=== PATIENT | female | born 1950 | race African-American/Black ===

== ENCOUNTER 2024-11-02 10:58 | Inpatient (IN) ==
[2024-11-02] MEDS ORDERED: MOTRIN TAB 600 MG PO PRN (15:13)
[2024-11-02 15:48] LABS: BASOPHILS # (AUTO) 0.1 X10^3/uL (0.0-0.1); BASOPHILS % (AUTO) 1.3 % (0.2-1.0); EOSINOPHILS # (AUTO) 0.4 x10^3/uL (0.0-0.2); EOSINOPHILS % (AUTO) 8.3 % (0.9-2.9); HEMATOCRIT 36.9 % (36.0-47.0); HEMOGLOBIN 11.7 g/dL (12.0-16.0); LYMPHOCYTES # (AUTO) 1.3 X10^3/uL (1.3-2.9); LYMPHOCYTES % (AUTO) 27.1 % (21.0-51.0); MEAN CORPUSCULAR HEMOGLOBIN 28.4 pg (27.0-34.0); MEAN CORPUSCULAR HGB CONC 31.6 g/dL (33.0-35.0); MEAN CORPUSCULAR VOLUME 89.8 fL (80.0-100.0); MEAN PLATELET VOLUME 8.2 fL (7.4-11.0); MONOCYTES # (AUTO) 0.5 x10^3/uL (0.3-0.8); MONOCYTES % (AUTO) 10.1 % (0.0-13.0); NEUTROPHILS # (AUTO) 2.5 x10^3/uL (2.2-4.8); NEUTROPHILS % (AUTO) 53.2 % (42.0-75.0); PLATELET COUNT 160 X10^3/uL (150.0-450.0); RED BLOOD COUNT 4.11 X10^6/uL (3.5-5.4); RED CELL DISTRIBUTION WIDTH 17.8 % (11.6-16.5); WHITE BLOOD COUNT 4.6 X10^3/uL (3.6-10.0)
[2024-11-02 15:50] VITALS: BMI 22.4
[2024-11-02 16:02] LABS: ALBUMIN 3.3 g/dL (3.4-5.0); CALCIUM 9.2 mg/dL (8.5-10.1); CARBON DIOXIDE 24.5 mmol/L (21-32); COR CA(FOR HYPOALB) 9.8 mg/dL (8.5-10.1); CREATININE 5.14 mg/dL (0.55-1.02); POTASSIUM 4.1 mmol/L (3.5-5.1); TOTAL PROTEIN 6.7 g/dL (6.4-8.2)
[2024-11-02] MEDS: NS 1,000 ML IV 1,000 ML IV SCH (16:25)
[2024-11-02] MEDS: NS 1,000 ML IV 1,000 ML ONE (16:27)
--- NOTE | 2024-11-02 16:32 | EKG ---
Test Reason : pre op for surgery Blood Pressure : */* mmHG Vent. Rate : 67 BPM Atrial Rate : 67 BPM P-R Int : 182 ms QRS Dur : 84 ms QT Int : 436 ms P-R-T Axes : 98 49 33 degrees QTc Int : 460 ms Normal sinus rhythm Normal ECG When compared with ECG of 14-JUL-2024 10:16, premature atrial complexes are no longer present Nonspecific T wave abnormality now evident in Lateral leads Confirmed by Conrado Zimmerman MD ([id number]) on 11/03/2024 7:33:32 AM Referred By: Confirmed By: Conrado Zimmerman MD
[2024-11-02] MEDS: PERCOCET TAB 5/325 MG PO PRN (17:49)
[2024-11-02] MEDS: LOVENOX INJ 80 MG SYR SC SCH (17:51)
[2024-11-02] MEDS: NEURONTIN CAP 300 MG PO SCH (21:10)
[2024-11-02] MEDS: NORMODYNE TAB 200 MG PO SCH (21:12)
[2024-11-02] MEDS: APRESOLINE TAB 25 MG PO SCH (21:14)
[2024-11-02] MEDS: CATAPRES TAB 0.3 MG PO SCH (21:16)
[2024-11-02] MEDS: PROCARDIA XL 24-HR PO SCH (21:25)
[2024-11-02] MEDS: LOVENOX INJ 60 MG SYR SC SCH (21:26)
--- NOTE | 2024-11-02 22:09 | CT ---
EXAM: CTA AORTA, AND BILATERAL LOWER EXTREMITIES WITH INTRAVENOUS CONTRAST HISTORY: Poor circulation. TECHNIQUE: Spiral axial CT images are obtained through the distal abdomen, pelvis and bilateral lower extremities with the administration of intravenous contrast. Three-dimensional coronal, sagittal, an d oblique images are reformatted. COMPARISON: CTA abdomen, pelvis, and bilateral lower extremities dated May 20, 2024. FINDINGS: LUNG BASES: There is severe coronary atherosclerosis. The patient is status post median sternotomy, presumably for CABG. There is cardiomegaly with four-chamber enlargement. No pericardial effusion i s seen. There is mild diffuse lung parenchymal emphysema. There is subpleural parenchymal fibrosis in the posterior lateral inferior right lower lobe. There is approximately 3.5 mm noncalcified subpl eural nodule in the posterior left lower lobe; DDx includes noncalcified granuloma and neoplastic nod ule. Axial image 36. BILIARY SYSTEM: There is gallbladder dilatation and thickened appearance of the gallbladder wall cons istent with cholecystitis in the appropriate clinical setting. Axial image 60-79, series 7. Conside r follow-up evaluation with HIDA scan to rule out cystic duct obstruction and acute cholecystitis as clinically warranted. GASTROINTESTINAL TRACT: There is circumferential thickening of the distal esophagus and gastroesophag eal junction in keeping with gastroesophagitis in the appropriate clinical setting; neoplastic diseas e not excluded. Axial image 22-55, series 7. Abundant fecal material is seen within the large bowel and rectum consistent with constipation. Diffuse colonic diverticulosis, especially severe in the s igmoid region, without CT evidence for acute diverticulitis. No evidence for bowel herniation, bowel obstruction, appendicitis or colitis. REPRODUCTIVE SYSTEM: There is an approximately 3.7 cm x 2.9 cm x 3.6 cm soft tissue mass in the anter ior body of the uterus consistent with a subserosal fibroid. Axial image 138; sagittal image 59. Th e adnexa appear grossly unremarkable for a CT scan. Consider follow-up dedicated imaging as clinical ly warranted. CT ABDOMEN AND PELVIS: The liver, spleen, pancreas, kidneys, adrenal glands, and IVC are within rosa l limits. There is no free fluid, free air, herniation, mass lesion, or lymphadenopathy seen. No bony fracture deformities are seen. There is interval appearance of an approximately 6.2 cm CC by 4.4 cm AP by 4.1 cm transverse rounded hyperdense fluid collection within the proximal left sartorius muscl e in keeping with an intracystic hematoma in the appropriate clinical setting; DDx includes superinfe cted fluid/abscess and necrotic soft tissue mass. Axial image 169-192, series 7; sagittal image 32-4 6, series 10. CTA ABDOMEN AND PELVIS: There is severe aortoiliac atherosclerotic disease, without aneurysm formatio n or dissection. No aortic aneurysm, dissection, or occlusion is seen. There is atherosclerotic calcified and noncalcified mural plaque seen in the celiac axis and proximal segment (approximately 2 cm long), with estimated moderate (estimated 50 to 69%), potentially hemody namically significant, luminal stenoses. Sagittal image 43, series 10; axial image 58-64, series 7. There is severe calcified atherosclerotic plaque seen in the celiac axis and proximal and middle SMA segments, with estimated severe (estimated greater than 70%), presuming hemodynamically significant, SMA origin luminal stenosis. Sagittal image 43-48, series 10; axial image 64-68, series 7. There is severe atherosclerotic calcified mural plaque seen in the renal artery origins (with a left renal artery stent in situ), with estimated severe (estimated greater than 70%), presumed nonhemodyna mically significant, luminal stenoses. Axial image 68-74, series 7; coronal image 29-36, series 9. There is severe atherosclerotic calcified mural plaque seen at the ROSA origin with estimated severe ( greater than 70%), potentially hemodynamically significant, luminal stenosis. Axial image 88-93. Bilateral kissing common iliac artery while stents are noted in situ, with evidence for mild illumina ting narrowing (estimated 50%) of the proximal and distal lumen of the left Wallstent. Axial image 1 00-116. There is estimated moderate (50 to 69%) right external iliac artery origin stenosis. Multif ocal segmental mild luminal stenoses (50% or less) are seen throughout the bilateral external iliac a rteries. CTA LOWER EXTREMITIES: RIGHT: There is evidence for severe occlusive stenosis of the right common femoral artery and origin of the right profundofemoral artery. Axial image 150-164, series 7. There are occluded proximal and middle right SFA wallstents. There is severe atherosclerotic calcified plaque in the popliteal kenyatta ry with complete popliteal artery occlusion. There is occlusion of the right TRANSITION OF CARE SPECIALIST at its origin. The re is reconstitution of arterial blood flow within right peroneal artery which represents the main bl ood flow to the distal leg/ankle. The right RICARDO and TRANSITION OF CARE SPECIALIST are severely diseased throughout with occlus haven thrombosis in the proximal RICARDO and severe attenuation of blood flow in the middle and distal TRANSITION OF CARE SPECIALIST. LEFT: The left SCREW DOWN demonstrated severe calcified and noncalcified atherosclerotic plaque with estimat ed mild (less than 50%) luminal stenosis. A patent proximal left SFA Wallstent is noted. A patent d istal left SFA Wallstent is noted, with mild (estimated 50% or less) segmental luminal stenoses throu ghout. The left popliteal artery and proximal trifurcation runoff vessels are diseased but patent to the ankle and feet. There is severe distal left lower extremity subcutaneous soft tissue edema and swelling at and below the knee; DDx includes venous stasis changes and cellulitis in the appropriate clinical setting. IMPRESSION: 1. Severe aortoiliac atherosclerotic disease, without aneurysm formation or dissection. No aortic a neurysm, dissection, or occlusion is seen. 2. Atherosclerotic calcified and noncalcified mural plaque seen in the celiac axis and proximal segm ent (approximately 2 cm long), with estimated moderate (estimated 50 to 69%), potentially hemodynamic ally significant, luminal stenoses. Sagittal image 43, series 10; axial image 58-64, series 7. 3. Severe calcified atherosclerotic plaque seen in the celiac axis and proximal and middle SMA segme nts, with estimated severe (estimated greater than 70%), presuming hemodynamically significant, SMA o rigin luminal stenosis. Sagittal image 43-48, series 10; axial image 64-68, series 7. 4. Severe atherosclerotic calcified mural plaque seen in the renal artery origins (with a left renal artery stent in situ), with estimated severe (estimated greater than 70%), presumed nonhemodynamical ly significant, luminal stenoses. Axial image 68-74, series 7; coronal image 29-36, series 9. 5. Severe atherosclerotic calcified mural plaque seen at the ROSA origin with estimated severe (great er than 70%), potentially hemodynamically significant, luminal stenosis. Axial image 88-93. 6. Bilateral kissing common iliac artery while stents are noted in situ, with evidence for mild illu minating narrowing (estimated 50%) of the proximal and distal lumen of the left Wallstent. Axial rosa ge 100-116. 7. Estimated moderate (50 to 69%) right external iliac artery origin stenosis. 8. Multifocal segmental mild luminal stenoses (50% or less) are seen throughout the bilateral caustic pump operator al iliac arteries. 9. Occlusive stenosis of the right SCREW DOWN and origin of the right profundofemoral artery. Axial image 150-164, series 7. 10. Occluded proximal and middle right SFA wallstents. 11. Severe atherosclerotic calcified plaque in the popliteal artery with complete popliteal artery o cclusion. 12. Occlusion of the right TRANSITION OF CARE SPECIALIST at its origin, with reconstitution of arterial blood flow within righ t peroneal artery which represents the main blood flow to the distal leg/ankle. 13. The right RICARDO and TRANSITION OF CARE SPECIALIST are severely diseased throughout with occlusive thrombosis in the proximal RICARDO and severe attenuation of blood flow in the middle and distal TRANSITION OF CARE SPECIALIST. 14. Left SCREW DOWN demonstrated severe calcified and noncalcified atherosclerotic plaque with estimated mi ld (less than 50%) luminal stenosis. 15. Patent proximal and distal left SFA Wallstent, with mild (estimated 50% or less) segmental lumin al stenoses throughout. 16. Left popliteal artery and proximal trifurcation runoff vessels are diseased but patent to the an kle and feet. 17. Interval appearance of an approximately 6.2 cm CC by 4.4 cm AP by 4.1 cm transverse rounded hype rdense fluid collection within the proximal left sartorius muscle in keeping with an intracystic alma catherine in the appropriate clinical setting; DDx includes superinfected fluid/abscess and necrotic soft tissue mass. Axial image 169-192, series 7; sagittal image 32-46, series 10. 18. Severe distal left lower extremity subcutaneous soft tissue edema and swelling at and below the knee; DDx includes venous stasis changes and cellulitis in the appropriate clinical setting. 19. Gallbladder dilatation and thickened appearance of the gallbladder wall consistent with cholecys titis in the appropriate clinical setting. Axial image 60-79, series 7. Consider follow-up evaluati on with HIDA scan to rule out cystic duct obstruction and acute cholecystitis as clinically warranted . 20. Circumferential thickening of the distal esophagus and gastroesophageal junction in keeping with gastroesophagitis in the appropriate clinical setting; neoplastic disease not excluded. Axial image 22-55, series 7. 21. Abundant fecal material is seen within the large bowel and rectum consistent with constipation. 22. Diffuse colonic diverticulosis, especially severe in the sigmoid region, without CT evidence for acute diverticulitis. 23. No evidence for bowel herniation, bowel obstruction, appendicitis or colitis. 24. Approximately 3.7 cm x 2.9 cm x 3.6 cm soft tissue mass in the anterior body of the uterus consi stent with a subserosal fibroid. Axial image 138; sagittal image 59. 25. Severe coronary atherosclerosis; status post median sternotomy, presumably for CABG; cardiomegal y with four-chamber enlargement. 26. Approximately 3.5 mm noncalcified subpleural nodule in the posterior left lower lobe; DDx includ es noncalcified granuloma and neoplastic nodule. Axial image 36. For low risk patient, recommend fo llow-up CT in 12 months, and if stable no further follow-up. For high-risk patient, recommend follow- up CT in no more than 6-12 months, and if stable, consider follow-up at 18-24 months. 27. Gallbladder dilatation and thickened appearance of the gallbladder wall consistent with cholecys titis in the appropriate clinical setting. Axial image 60-79, series 7. Consider follow-up evaluati on with HIDA scan to rule out cystic duct obstruction and acute cholecystitis as clinically warranted . THIS IS AN ELECTRONICALLY VERIFIED FINAL REPORT 11/02/2024 10:06 PM - Electronically signed by Marisol Andrade MD
--- NOTE | 2024-11-02 23:59 | NOTE.SOAP ---
Soap Note Note for Day of Date of Exam: 11/02/24 Subjective Data Subjective Data: This patient has had extensive bilateral arterial invention of the legs. She presented to the office today with acute onset 3 days prior of right leg pain. She has history of end-stage renal failure and was dialyzed last Saturday. Next dialysis is planned for tomorrow. She was admitted for pain control and evaluation. CT angiogram shows stenosis and occlusion of the right common femoral artery and superficial femoral artery stents and distal vessels as well. Objective Data Temperature: 97.9 F Pulse Rate: 72 Respiratory Rate: 16 Blood Pressure: 144/63 O2 Sat by Pulse Oximetry: 100 Objective Data: No Doppler signals or palpable pulses of the right ankle. CT angiogram as above Assessment Assessment: Acute ischemia secondary to thrombosis of arteries of the right leg involving primarily the common femoral artery and superficial femoral artery stents. Plan Plan: Therapeutic Lovenox. Plan to take her to the operating room for on table arteriogram and arterial intervention to be determined at that time.
[2024-11-03 06:20] LABS: BASOPHILS % (AUTO) 0.8 % (0.2-1.0); EOSINOPHILS # (AUTO) 0.4 x10^3/uL (0.0-0.2); EOSINOPHILS % (AUTO) 7.9 % (0.9-2.9); HEMATOCRIT 36.9 % (36.0-47.0); HEMOGLOBIN 11.8 g/dL (12.0-16.0); LYMPHOCYTES # (AUTO) 1.5 X10^3/uL (1.3-2.9); LYMPHOCYTES % (AUTO) 29.4 % (21.0-51.0); MEAN CORPUSCULAR HEMOGLOBIN 28.6 pg (27.0-34.0); MEAN CORPUSCULAR HGB CONC 32.1 g/dL (33.0-35.0); MEAN CORPUSCULAR VOLUME 89.2 fL (80.0-100.0); MEAN PLATELET VOLUME 8.9 fL (7.4-11.0); MONOCYTES # (AUTO) 0.5 x10^3/uL (0.3-0.8); MONOCYTES % (AUTO) 10.2 % (0.0-13.0); NEUTROPHILS # (AUTO) 2.7 x10^3/uL (2.2-4.8); NEUTROPHILS % (AUTO) 51.7 % (42.0-75.0); PLATELET COUNT 175 X10^3/uL (150.0-450.0); RED BLOOD COUNT 4.14 X10^6/uL (3.5-5.4); RED CELL DISTRIBUTION WIDTH 18.4 % (11.6-16.5); WHITE BLOOD COUNT 5.2 X10^3/uL (3.6-10.0)
[2024-11-03] MEDS: OMNIPAQUE 350 mg/mL 100 mL BTL 100 ML ONE (07:04)
[2024-11-03] MEDS: OMNIPAQUE 350 mg/mL 50 mL BTL 50 ML ONE (07:05)
[2024-11-03] MEDS: NS 500 ML IV 500 ML IV ONE (07:05)
[2024-11-03 07:10] LABS: ALANINE AMINOTRANSFERASE 14 Units/L (12-78); ALKALINE PHOSPHATASE 116 Units/L (46-116); ASPARTATE AMINO TRANSFERASE 14 Units/L (15-37); BLOOD UREA NITROGEN 51 mg/dL (7-18); CALCIUM 8.3 mg/dL (8.5-10.1); CARBON DIOXIDE 23.4 mmol/L (21-32); CHLORIDE 106 mmol/L (98-107); CREATININE 5.35 mg/dL (0.55-1.02); GLUCOSE 86 mg/dL (65-99); POTASSIUM 4.6 mmol/L (3.5-5.1); SODIUM 141 mmol/L (136-145); TOTAL PROTEIN 6.4 g/dL (6.4-8.2); eGFR NON BLACK RACES 8 (>60)
[2024-11-03 07:44] LABS: ALBUMIN 3.2 g/dL (3.4-5.0); COR CA(FOR HYPOALB) 8.9 mg/dL (8.5-10.1)
--- NOTE | 2024-11-03 08:22 | RAD ---
EXAM: CHEST, 1 VIEW HISTORY: pre op vascular surgery ; COMPARISON: 07/14/2024 FINDINGS: The cardiomediastinal silhouette is stable. Right-sided tunnel catheter unchanged. Similar post thomas rnotomy changes. Scattered bilateral opacities. No pneumothorax or effusion. No acute osseous abnormality. IMPRESSION: Scattered bilateral opacities which may be due to congestion/edema. Continued follow-up recommended. THIS IS AN ELECTRONICALLY VERIFIED FINAL REPORT 11/03/2024 8:19 AM - Electronically signed by Jeffy Ramsey MD
[2024-11-03] MEDS: ASPIRIN EC 81 MG PO SCH (09:20)
[2024-11-03] MEDS: LIPITOR TAB 40 MG PO SCH (09:21)
[2024-11-03] MEDS: NS 100 ML IV 100 ML ONE (12:42)
[2024-11-03] MEDS: LR 1,000 ML IV 1,000 ML IV ONE (12:42)
[2024-11-03] MEDS: ANCEF VIAL 1 GRAM ONE (12:42)
[2024-11-03] MEDS: LR 1,000 ML IV 250 ML IV PRN (12:58)
[2024-11-03] MEDS: REGLAN INJ 10 MG VIAL IVP PRN (12:59)
[2024-11-03] MEDS: VERSED IVP PRN (12:59)
[2024-11-03] MEDS: PEPCID 20 MG VIAL IVP PRN (12:59)
[2024-11-03] MEDS ORDERED: XYLOCAINE 2 % (PLAIN) PRN (13:02)
[2024-11-03] MEDS: KETAMINE HCL IV PRN (13:03)
[2024-11-03] MEDS: ANCEF VIAL 1 GRAM IV PRN (13:03)
[2024-11-03] MEDS: DIPRIVAN VIAL 250 ML IVP PRN (13:03)
[2024-11-03] MEDS: PRECEDEX INJ VIAL IVP PRN (13:03)
[2024-11-03] MEDS: MARCAINE 0.5% ONE (13:12)
[2024-11-03] MEDS: VISIPAQUE 50 ML ONE (13:12)
[2024-11-03] MEDS: HEPARIN 1,000 UNIT/500 ML-NS 3,000 UNIT/1,500 ML IV.SOLN ONE (13:12)
[2024-11-03] MEDS: VISIPAQUE 100 ML ONE (13:12)
[2024-11-03] MEDS: OFIRMEV IV 1000 MG VIAL 1,000 MG/100 ML VIAL IV PRN (13:20)
[2024-11-03] MEDS: FENTANYL VIAL INJ 100 mcg IVP PRN (13:40)
[2024-11-03] MEDS ORDERED: XYLOCAINE 2 % (PLAIN) ONE (14:15)
[2024-11-03] MEDS ORDERED: KETAMINE HCL ONE (14:15)
[2024-11-03] MEDS ORDERED: HEPARIN SODIUM INJ 5000 UNITS IVP PRN (14:40)
[2024-11-03] MEDS: ACTIVASE CATHFLO ONE (14:45)
[2024-11-03] MEDS: ACTIVASE CATHFLO 12 MG in NS 250 ML IV 228 ML IV SCH (14:45)
[2024-11-03] MEDS: NS 1,000 ML IV 1,000 ML ONE (14:45)
[2024-11-03] MEDS: DILAUDID INJ IVP PRN (15:27)
--- NOTE | 2024-11-03 15:35 | OR.IMMED ---
IMMEDIATE POST-OP NOTE Immediate Post-Op Note Date of surgery/procedure: 11/03/24 Pre-Op Diagnosis: Critical ischemia of the right leg with complete occlusion of right superficial femoral artery stents ,, popliteal artery and poor runoff right leg Post-Op Diagnosis: Patent aorta and right common iliac artery and external iliac artery, dissection at the takeoff of the superficial femoral artery with occluded right superficial artery stents and occluded right popliteal artery with occluded posterior tibial artery, patent peroneal artery and patent anterior tibial artery of the right leg to the foot Procedure: Diagnostic aortogram, arteriogram right leg from distal approach through the dorsalis pedis artery, stenting of the proximal right superficial femoral artery, balloon angioplasty of the right superficial femoral artery stents and right popliteal artery, intravascular sound of the entire arterial tree of the right leg, placement of EKOS thrombolytic catheter for directed thrombolysis of arteries of the right leg Description of Procedure: dictated Surgeon/Syrup Mixer: Sujey Findings: After stenting of the right superficial femoral artery the dissection was taken care of but there appeared to be thrombosis of the entire right superficial femoral artery and popliteal artery. For this reason an EKOS thrombolytic catheter was placed. This patient is at high risk for limb loss.see post op above , Estimated Blood Loss: 100cc Complications: none Progress Notes: Patient to be placed in the ICU for directed thrombolysis and routine laboratory values. Patient will be followed in regard to her electrolytes and her volume status because of her chronic renal failure. She will need dialysis soon Post Hospital Plans and Medications: To CCU for continued directed thrombolysis, routine lab work. Will follow her
[2024-11-03 15:54] LABS: BASOPHILS # (AUTO) 0.1 X10^3/uL (0.0-0.1); BASOPHILS % (AUTO) 1.3 % (0.2-1.0); EOSINOPHILS # (AUTO) 0.4 x10^3/uL (0.0-0.2); EOSINOPHILS % (AUTO) 7.7 % (0.9-2.9); HEMATOCRIT 38.1 % (36.0-47.0); HEMOGLOBIN 11.9 g/dL (12.0-16.0); LYMPHOCYTES # (AUTO) 1.6 X10^3/uL (1.3-2.9); LYMPHOCYTES % (AUTO) 28.8 % (21.0-51.0); MEAN CORPUSCULAR HEMOGLOBIN 28.3 pg (27.0-34.0); MEAN CORPUSCULAR HGB CONC 31.2 g/dL (33.0-35.0); MEAN CORPUSCULAR VOLUME 90.5 fL (80.0-100.0); MEAN PLATELET VOLUME 8.5 fL (7.4-11.0); MONOCYTES # (AUTO) 0.4 x10^3/uL (0.3-0.8); MONOCYTES % (AUTO) 6.9 % (0.0-13.0); NEUTROPHILS % (AUTO) 55.3 % (42.0-75.0); PLATELET COUNT 172 X10^3/uL (150.0-450.0); RED BLOOD COUNT 4.21 X10^6/uL (3.5-5.4); RED CELL DISTRIBUTION WIDTH 18.3 % (11.6-16.5); WHITE BLOOD COUNT 5.4 X10^3/uL (3.6-10.0)
[2024-11-03] MEDS ORDERED: PHARMACY CONSULT EKOS LOVENOX XX SCH (16:00)
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
[2024-11-03] MEDS: DIPRIVAN VIAL 20 ML ONE (16:41)
[2024-11-03] MEDS: OFIRMEV IV 1000 MG VIAL 1,000 MG/100 ML VIAL IV ONE (16:42)
[2024-11-03] MEDS: FENTANYL VIAL INJ 100 mcg ONE (16:42)
[2024-11-03] MEDS: HEPARIN SODIUM INJ 5000 UNITS ONE (16:42)
[2024-11-03] MEDS: REGLAN INJ 10 MG VIAL ONE (16:43)
[2024-11-03] MEDS: PEPCID 20 MG VIAL ONE (16:43)
[2024-11-03] MEDS: VERSED ONE (16:43)
[2024-11-03] MEDS: ZOFRAN INJ 4 MG VIAL ONE (16:44)
[2024-11-03] MEDS: PRECEDEX INJ VIAL ONE (16:44)
[2024-11-03] MEDS: NS 500 ML IV 500 ML IV SCH (16:49)
[2024-11-03] MEDS: NEURONTIN CAP 300 MG PO SCH (16:50)
[2024-11-03] MEDS: DILAUDID INJ IVP ONE (18:22)
[2024-11-03] MEDS: ACTIVASE CATHFLO 12 MG in NS 250 ML IV 228 ML INTRACATH ONE (19:03)
[2024-11-03 22:09] LABS: BASOPHILS % (AUTO) 0.5 % (0.2-1.0); EOSINOPHILS # (AUTO) 0.2 x10^3/uL (0.0-0.2); EOSINOPHILS % (AUTO) 2.3 % (0.9-2.9); HEMATOCRIT 37.7 % (36.0-47.0); HEMOGLOBIN 11.7 g/dL (12.0-16.0); LYMPHOCYTES # (AUTO) 0.7 X10^3/uL (1.3-2.9); LYMPHOCYTES % (AUTO) 8.3 % (21.0-51.0); MEAN CORPUSCULAR HEMOGLOBIN 28.1 pg (27.0-34.0); MEAN CORPUSCULAR VOLUME 90.5 fL (80.0-100.0); MEAN PLATELET VOLUME 8.2 fL (7.4-11.0); MONOCYTES # (AUTO) 0.5 x10^3/uL (0.3-0.8); MONOCYTES % (AUTO) 5.4 % (0.0-13.0); NEUTROPHILS # (AUTO) 7.4 x10^3/uL (2.2-4.8); NEUTROPHILS % (AUTO) 83.5 % (42.0-75.0); PLATELET COUNT 166 X10^3/uL (150.0-450.0); RED BLOOD COUNT 4.17 X10^6/uL (3.5-5.4); RED CELL DISTRIBUTION WIDTH 18.5 % (11.6-16.5); WHITE BLOOD COUNT 8.9 X10^3/uL (3.6-10.0)
[2024-11-04 03:55] LABS: BASOPHILS # (AUTO) 0.1 X10^3/uL (0.0-0.1); BASOPHILS % (AUTO) 1.2 % (0.2-1.0); EOSINOPHILS # (AUTO) 0.2 x10^3/uL (0.0-0.2); EOSINOPHILS % (AUTO) 2.4 % (0.9-2.9); HEMATOCRIT 34.3 % (36.0-47.0); HEMOGLOBIN 10.6 g/dL (12.0-16.0); LYMPHOCYTES # (AUTO) 0.9 X10^3/uL (1.3-2.9); LYMPHOCYTES % (AUTO) 13.5 % (21.0-51.0); MEAN CORPUSCULAR HEMOGLOBIN 28.1 pg (27.0-34.0); MEAN CORPUSCULAR HGB CONC 30.9 g/dL (33.0-35.0); MEAN CORPUSCULAR VOLUME 90.9 fL (80.0-100.0); MEAN PLATELET VOLUME 8.1 fL (7.4-11.0); MONOCYTES # (AUTO) 0.5 x10^3/uL (0.3-0.8); MONOCYTES % (AUTO) 6.6 % (0.0-13.0); NEUTROPHILS # (AUTO) 5.3 x10^3/uL (2.2-4.8); NEUTROPHILS % (AUTO) 76.3 % (42.0-75.0); PLATELET COUNT 153 X10^3/uL (150.0-450.0); RED BLOOD COUNT 3.78 X10^6/uL (3.5-5.4); RED CELL DISTRIBUTION WIDTH 18.6 % (11.6-16.5); WHITE BLOOD COUNT 6.9 X10^3/uL (3.6-10.0)
[2024-11-04 03:58] LABS: BLOOD UREA NITROGEN 51 mg/dL (7-18); CALCIUM 7.7 mg/dL (8.5-10.1); CARBON DIOXIDE 24.5 mmol/L (21-32); CHLORIDE 105 mmol/L (98-107); GLUCOSE 96 mg/dL (65-99); POTASSIUM 4.6 mmol/L (3.5-5.1); SODIUM 137 mmol/L (136-145); eGFR NON BLACK RACES 8 (>60)
[2024-11-04 10:25] LABS: BASOPHILS % (AUTO) 0.6 % (0.2-1.0); EOSINOPHILS # (AUTO) 0.3 x10^3/uL (0.0-0.2); EOSINOPHILS % (AUTO) 3.9 % (0.9-2.9); HEMATOCRIT 33.9 % (36.0-47.0); HEMOGLOBIN 10.5 g/dL (12.0-16.0); LYMPHOCYTES # (AUTO) 0.9 X10^3/uL (1.3-2.9); LYMPHOCYTES % (AUTO) 12.7 % (21.0-51.0); MEAN CORPUSCULAR HEMOGLOBIN 28.1 pg (27.0-34.0); MEAN CORPUSCULAR VOLUME 90.9 fL (80.0-100.0); MONOCYTES # (AUTO) 0.7 x10^3/uL (0.3-0.8); MONOCYTES % (AUTO) 9.9 % (0.0-13.0); NEUTROPHILS # (AUTO) 5.2 x10^3/uL (2.2-4.8); NEUTROPHILS % (AUTO) 72.9 % (42.0-75.0); PLATELET COUNT 141 X10^3/uL (150.0-450.0); RED BLOOD COUNT 3.73 X10^6/uL (3.5-5.4); RED CELL DISTRIBUTION WIDTH 17.9 % (11.6-16.5); WHITE BLOOD COUNT 7.1 X10^3/uL (3.6-10.0)
--- NOTE | 2024-11-04 10:43 | NOTE.SOAP ---
Soap Note Note for Day of Date of Exam: 11/04/24 Subjective Data Subjective Data: POD # 1 after aortogram, arteriogram right leg , and placement of right sided EKOS thrombolytic catheter and she has had relief of pain of the right leg and right leg now warm aime touch. Only complaint is where the catheter enters her dorsalis pedis artery. Objective Data Temperature: 98.0 F Pulse Rate: 96 Respiratory Rate: 18 Blood Pressure: 171/80 O2 Sat by Pulse Oximetry: 94 Objective Data: right leg now warm and pain relieved. Assessment Assessment: Critical ischemia of the right leg now doing better after placement of EKOS catheter for directed thrombolysis.Patient with chronic renal failure on dialysis. Her volume status is stable and her creatinine has been unchanged at 5.3. Electrolytes are within normal limits as well Plan Plan: Continue 24 hours of thrombolysis. Return to the operating suite tomorrow for repeat arteriogram and possible additional intervention. Patient will probably be discharged tomorrow and we have already discussed additional dialysis for her on Saturday and Saturday with her dialysis center as an outpatient.
[2024-11-04] MEDS: DILAUDID INJ IVP PRN (16:28)
[2024-11-04 16:40] LABS: MEAN PLATELET VOLUME 8.4 fL (7.4-11.0); WHITE BLOOD COUNT 7.2 X10^3/uL (3.6-10.0)
[2024-11-04 16:43] LABS: BASOPHILS % (AUTO) 0.4 % (0.2-1.0); EOSINOPHILS # (AUTO) 0.3 x10^3/uL (0.0-0.2); EOSINOPHILS % (AUTO) 3.5 % (0.9-2.9); HEMATOCRIT 32.1 % (36.0-47.0); LYMPHOCYTES % (AUTO) 14.1 % (21.0-51.0); MEAN CORPUSCULAR HEMOGLOBIN 28.4 pg (27.0-34.0); MEAN CORPUSCULAR HGB CONC 31.3 g/dL (33.0-35.0); MEAN CORPUSCULAR VOLUME 90.7 fL (80.0-100.0); MONOCYTES # (AUTO) 0.8 x10^3/uL (0.3-0.8); MONOCYTES % (AUTO) 10.5 % (0.0-13.0); NEUTROPHILS # (AUTO) 5.1 x10^3/uL (2.2-4.8); NEUTROPHILS % (AUTO) 71.5 % (42.0-75.0); PLATELET COUNT 134 X10^3/uL (150.0-450.0); RED BLOOD COUNT 3.53 X10^6/uL (3.5-5.4); RED CELL DISTRIBUTION WIDTH 18.2 % (11.6-16.5)
[2024-11-04 22:01] LABS: BASOPHILS % (AUTO) 0.5 % (0.2-1.0); EOSINOPHILS # (AUTO) 0.3 x10^3/uL (0.0-0.2); EOSINOPHILS % (AUTO) 3.6 % (0.9-2.9); HEMATOCRIT 31.9 % (36.0-47.0); LYMPHOCYTES # (AUTO) 0.9 X10^3/uL (1.3-2.9); LYMPHOCYTES % (AUTO) 12.6 % (21.0-51.0); MEAN CORPUSCULAR HEMOGLOBIN 28.3 pg (27.0-34.0); MEAN CORPUSCULAR HGB CONC 31.3 g/dL (33.0-35.0); MEAN CORPUSCULAR VOLUME 90.7 fL (80.0-100.0); MEAN PLATELET VOLUME 8.5 fL (7.4-11.0); MONOCYTES # (AUTO) 0.7 x10^3/uL (0.3-0.8); NEUTROPHILS # (AUTO) 5.3 x10^3/uL (2.2-4.8); NEUTROPHILS % (AUTO) 73.3 % (42.0-75.0); PLATELET COUNT 136 X10^3/uL (150.0-450.0); RED BLOOD COUNT 3.51 X10^6/uL (3.5-5.4); RED CELL DISTRIBUTION WIDTH 18.1 % (11.6-16.5); WHITE BLOOD COUNT 7.3 X10^3/uL (3.6-10.0)
[2024-11-05 03:58] LABS: EOSINOPHILS # (AUTO) 0.2 x10^3/uL (0.0-0.2); LYMPHOCYTES # (AUTO) 0.8 X10^3/uL (1.3-2.9); MEAN PLATELET VOLUME 8.4 fL (7.4-11.0); WHITE BLOOD COUNT 7.4 X10^3/uL (3.6-10.0)
[2024-11-05 04:01] LABS: BLOOD UREA NITROGEN 49 mg/dL (7-18); CALCIUM 8.1 mg/dL (8.5-10.1); CARBON DIOXIDE 21.6 mmol/L (21-32); CHLORIDE 106 mmol/L (98-107); CREATININE 5.46 mg/dL (0.55-1.02); GLUCOSE 82 mg/dL (65-99); POTASSIUM 4.8 mmol/L (3.5-5.1); SODIUM 138 mmol/L (136-145); eGFR NON BLACK RACES 8 (>60)
[2024-11-05 04:02] LABS: BASOPHILS % (AUTO) 0.3 % (0.2-1.0); EOSINOPHILS % (AUTO) 2.6 % (0.9-2.9); HEMATOCRIT 32.1 % (36.0-47.0); LYMPHOCYTES % (AUTO) 11.4 % (21.0-51.0); MEAN CORPUSCULAR HEMOGLOBIN 28.4 pg (27.0-34.0); MEAN CORPUSCULAR HGB CONC 31.1 g/dL (33.0-35.0); MEAN CORPUSCULAR VOLUME 91.1 fL (80.0-100.0); MONOCYTES # (AUTO) 0.7 x10^3/uL (0.3-0.8); MONOCYTES % (AUTO) 9.6 % (0.0-13.0); NEUTROPHILS # (AUTO) 5.6 x10^3/uL (2.2-4.8); NEUTROPHILS % (AUTO) 76.1 % (42.0-75.0); PLATELET COUNT 126 X10^3/uL (150.0-450.0); RED BLOOD COUNT 3.52 X10^6/uL (3.5-5.4); RED CELL DISTRIBUTION WIDTH 17.9 % (11.6-16.5)
[2024-11-05] MEDS: NOZIN NASAL SANITIZER TP ONE (04:14)
[2024-11-05] MEDS: HIBICLENS WASH EXT ONE (04:14)
[2024-11-05 09:35] LABS: BASOPHILS # (AUTO) 0.1 X10^3/uL (0.0-0.1); BASOPHILS % (AUTO) 0.8 % (0.2-1.0); EOSINOPHILS # (AUTO) 0.1 x10^3/uL (0.0-0.2); EOSINOPHILS % (AUTO) 1.7 % (0.9-2.9); HEMATOCRIT 31.7 % (36.0-47.0); LYMPHOCYTES # (AUTO) 0.7 X10^3/uL (1.3-2.9); LYMPHOCYTES % (AUTO) 10.6 % (21.0-51.0); MEAN CORPUSCULAR HEMOGLOBIN 28.6 pg (27.0-34.0); MEAN CORPUSCULAR HGB CONC 31.4 g/dL (33.0-35.0); MEAN CORPUSCULAR VOLUME 90.9 fL (80.0-100.0); MEAN PLATELET VOLUME 8.3 fL (7.4-11.0); MONOCYTES # (AUTO) 0.7 x10^3/uL (0.3-0.8); MONOCYTES % (AUTO) 9.5 % (0.0-13.0); NEUTROPHILS # (AUTO) 5.4 x10^3/uL (2.2-4.8); NEUTROPHILS % (AUTO) 77.4 % (42.0-75.0); PLATELET COUNT 123 X10^3/uL (150.0-450.0); RED BLOOD COUNT 3.48 X10^6/uL (3.5-5.4); RED CELL DISTRIBUTION WIDTH 17.8 % (11.6-16.5)
[2024-11-05 10:00] LABS: ANISOCYTOSIS SLIGHT; PLATELET MORPHOLOGY COMMENT NORMAL (NORMAL)
[2024-11-05] MEDS: LR 1,000 ML IV 1,000 ML IV ONE (11:35)
[2024-11-05] MEDS: NS 1,000 ML IV 100 ML IV PRN (11:40)
[2024-11-05] MEDS: VERSED IVP PRN (11:44)
[2024-11-05] MEDS: REGLAN INJ 10 MG VIAL IVP PRN (11:47)
[2024-11-05] MEDS: ZOFRAN INJ 4 MG VIAL IVP PRN (11:47)
[2024-11-05] MEDS: PEPCID 20 MG VIAL IVP PRN (11:47)
[2024-11-05] MEDS: NS 500 ML IV 500 ML IV ONE (11:47)
[2024-11-05] MEDS: ANCEF VIAL 1 GRAM ONE (11:59)
[2024-11-05] MEDS: NS 100 ML IV 100 ML ONE (11:59)
[2024-11-05] MEDS: DIPRIVAN VIAL 20 ML ONE (12:06)
[2024-11-05] MEDS: VERSED ONE (12:06)
[2024-11-05] MEDS ORDERED: PRECEDEX INJ VIAL ONE (12:06)
[2024-11-05] MEDS: ANCEF VIAL 1 GRAM IV PRN (12:06)
[2024-11-05] MEDS ORDERED: XYLOCAINE 2 % (PLAIN) ONE (12:06)
[2024-11-05] MEDS ORDERED: KETAMINE HCL ONE (12:06)
[2024-11-05] MEDS: REGLAN INJ 10 MG VIAL ONE (12:06)
[2024-11-05] MEDS: PEPCID 20 MG VIAL ONE (12:06)
[2024-11-05] MEDS: ZOFRAN INJ 4 MG VIAL ONE (12:06)
[2024-11-05] MEDS: FENTANYL VIAL INJ 100 mcg ONE (12:09)
[2024-11-05] MEDS: DIPRIVAN VIAL 100 ML IVP PRN (12:15)
[2024-11-05] MEDS: PRECEDEX INJ VIAL IVP PRN (12:15)
[2024-11-05] MEDS: KETAMINE HCL IV PRN (12:15)
[2024-11-05] MEDS: MARCAINE 0.5% ONE (12:29)
[2024-11-05] MEDS: HEPARIN 1,000 UNIT/500 ML-NS 3,000 UNIT/1,500 ML IV.SOLN ONE (12:29)
[2024-11-05] MEDS: HEPARIN SODIUM INJ 5000 UNITS IVP PRN (12:29)
[2024-11-05] MEDS: VISIPAQUE 100 ML ONE (12:31)
[2024-11-05] MEDS: NS 1,000 ML IV 0 ML ONE (12:42)
[2024-11-05] MEDS: DILAUDID INJ ONE (12:58)
[2024-11-05] MEDS: DILAUDID INJ IVP PRN (13:07)
[2024-11-05] MEDS: FENTANYL VIAL INJ 100 mcg IVP PRN (13:13)
--- NOTE | 2024-11-05 13:30 | OR.IMMED ---
IMMEDIATE POST-OP NOTE Immediate Post-Op Note Date of surgery/procedure: 11/05/24 Pre-Op Diagnosis: thrombosis arteries right leg Post-Op Diagnosis: same , s/p directed thrombolysis, much improved Procedure: aortogram, arteriogram right leg arteries, IVUS right leg arteries , stenting right popliteal artery Description of Procedure: dictated Surgeon/Commodities Manager: Sujey Findings: thrombosis resolved, diseased right popliteal artery with severe stenosis, 3 vessel runoff right foot Estimated Blood Loss: < 50 cc Complications: none Progress Notes: to CCU , stop EKOS and Lovenox, begin aspirin and Xarelto, D/C tonight or in AM, for dialysis tomorrow
--- NOTE | 2024-11-05 14:21 | DR.OPNOTE ---
OP NOTE Pre-Op Diagnosis: Critical limb threatening ischemia right leg Post-Op Diagnosis: Same Procedure Date Date Of Procedure: 11/03/24 Procedure: PROCEDURE : Aortogram and arteriogram right leg with access from the right ankle in the anterior tibial artery, intravascular ultrasound of the arteries of the right leg, stenting of the proximal right superficial femoral artery, placement of EKOS thrombolytic catheter in the arteries of the right leg NARRATIVE : The patient was taken to the operative suite and placed in the supine position. The entire right leg and both groins were prepped and draped in sterile fashion. The patient was given intravenous sedation supervised by myself. A timeout for the procedure obtained. Because the patient had kissing stents in both common ilic arteries we elected to approach this from the ankle first. Ultrasound used to identify the anterior tibial artery at the ankle and the skin overlying it infiltrated with 0.5% Marcaine. Ultrasound used to guide puncture of the anterior tibial artery and a 0.012 inch guidewire placed. Incision made over the guidewire at the skin edge with #11 knife blade and the micro sheath placed over the guidewire into the anterior tibial artery. Arteriogram confirmed that we were in the anterior tibial artery. The small guidewire was exchanged for a 0.035 inchAdvantage Glidewire and the micro sheath exchanged for a 7 [place] vascular sheath. With some difficulty the wire was taken all the way through the occluded vessels of the right leg to the iliac artery. [place] catheter placed over the wire into the aorta and aortogram carried out showing patent aor ta and patent iliac artery and patent iliac right sided stent. There was occlusion of the takeoff of the right uperficial femoral artery and occlusion of the stents distal to this. All vessels were occluded of the right leg with the exception of the tib peroneal trunk now which had been re-cannalized with the catheter. Patient then given 500o units of intravenous heparin. We attempted multiple times to dilate the stents with drug-coated balloons but this was not very successful. At this point we exchanged the 0.035 inch wire through the [place] catheter for a 0.018 inch wire and over this placed the OPTi cross intravascular catheter performimng intravascular ultrasound showing and a dissection of the takeoff of the right superficial artery still with significant thrombus in the rest of the vessels of the right leg. Then over the wire we placed an Tiffanie 6 mm x 120 mm drug-eluting stent extending from the takeoff of the right superficial femoral artery to the other stents in the right proximal superficial artery and then balloon dilated this with a 6 mm balloon. Repeat arteriogram still showed significant thrombus. Therefore, we exchanged the wire for a 0.035 inch wire and over this placed the outer sheath of the EKOS thrombolytic catheter. Wire removed and we placed the inner core of the catheter. This was placed to oscillation. Patient was bolused with 3 mg of t PA through the drug port and a drip of 1 mg/h started 20 cc/h through the drug port. Normal saline started through the coolant port at 30 cc/h. Patient was given subcutaneous Lovenox. Catheter secured to skin with a silk suture and Tegaderm dressings . Patient taken to critical care unit in good condition. Type of Anesthesia: Local (0.5% Marcaine) Anesthesia Comment: Plus MAC Findings: Thrombosis of entire right superficial femoral artery, popliteal artery, to peroneal trunk and all runoff vessels to the right foot, dissection of the takeoff of the right superficial femoral artery Type of Fluids Used:: Normal Saline Total Amount of Fluid Infused:: 250 cc EBL: 100 cc Hardware: Tiffanie 6 mm x 120 mm drug-eluting stent Complications:: None Needle/Sponge Count:: Correct Disposition/Condition: Pt. tolerated procedure without difficulty. Taken to CCU in stable condition.
[2024-11-05] MEDS: XARELTO PO SCH (20:40)
[2024-11-06 05:56] LABS: BLOOD UREA NITROGEN 64 mg/dL (7-18); CALCIUM 7.9 mg/dL (8.5-10.1); CARBON DIOXIDE 19.6 mmol/L (21-32); CHLORIDE 103 mmol/L (98-107); CREATININE 6.31 mg/dL (0.55-1.02); GLUCOSE 94 mg/dL (65-99); SODIUM 135 mmol/L (136-145); eGFR NON BLACK RACES 7 (>60)
[2024-11-06 07:49] VITALS: TEMP 98.4
[2024-11-06 10:12] VITALS: BP 173/75; PULSE 95; O2SAT 93
[2024-11-06] MEDS ORDERED: MILK OF MAGNESIA PO PRN (10:14)
--- NOTE | 2024-11-06 10:32 | W.DIS.FURT ---
Summary of Discharge Discharge Summary of Date Date of Exam: 11/06/24 Admission Date Date of Admission: 11/03/24 Admission Diagnosis Hospital Course: This patient is a 74-year-old female with history of chronic renal failure who is dialyzed 3 times a week. She also has significant bilateral peripheral vascular disease.She presented with acute ischemia of the right leg on the day of admission. Patient was admitted and placed on therapeutic Lovenox and CT angiogram showed thrombosis of all of the vessels and stents of the right leg. She was taken to the operating suite on November 03 where she underwent arteriogram showing the complete occlusion. Approach was via the anterior tibial artery. She required 24 hours of directed thrombolysis with TPA. She was taken back to the operating suite on November 05 ,arteriogram showed re solution of the thrombus with evidence of severe disease of the distal popliteal artery and this was stented. Her pain is now relieved. She has Doppler signals in the anterior tibial and posterior tibial arteries. She will be discharged today and we will plan to have dialysis today. We have been following her laboratory evaluation ,her creatinine has been stable around 5.3 now 6.3 on discharge and her potassium has been normal. Volume status has been adequate. She will be discharged today to have dialysis today and probably tomorrow as well. She will follow-up with me in 1 week. She will be given prescriptions for Percocet 5 mg tablets 1 every 6 hours. Pain. Vital Signs: Vital Signs (72 hours) 11/04/24 10:43 11/03/24 11:42 11/03/24 15:27 Temperature 98.0 F 98.1 F Pulse Rate 96 H Pulse Rate [Brachial] 92 H Respiratory Rate 18 18 22 Blood Pressure 171/80 Blood Pressure [Right Arm] 176/77 O2 Sat by Pulse Oximetry 94 L 93 L Oxygen Delivery Method Room Air Oxygen Flow Rate FIO2% 11/03/24 15:00 11/03/24 15:15 11/03/24 15:30 Temperature 98.6 F 98.6 F 98.6 F Pulse Rate Pulse Rate [Brachial] 87 93 H 95 H Respiratory Rate 26 H 24 22 Blood Pressure Blood Pressure [Right Arm] 176/86 179/110 176/99 O2 Sat by Pulse Oximetry 99 99 98 Oxygen Delivery Method Oxygen Flow Rate FIO2% 11/03/24 15:45 11/03/24 16:00 11/03/24 15:05 Temperature 98.6 F 98.6 F Pulse Rate Pulse Rate [Brachial] 95 H 96 H Respiratory Rate 20 20 Blood Pressure Blood Pressure [Right Arm] 167/78 164/72 O2 Sat by Pulse Oximetry 99 98 Oxygen Delivery Method Nasal Cannula Oxygen Flow Rate 3 FIO2% 32 11/03/24 16:30 11/03/24 15:57 11/03/24 17:00 Temperature 98.4 F Pulse Rate Pulse Rate [Brachial] 91 H Respiratory Rate 20 20 21 Blood Pressure Blood Pressure [Right Arm] 164/72 O2 Sat by Pulse Oximetry 98 Oxygen Delivery Method Oxygen Flow Rate FIO2% 11/03/24 18:22 11/03/24 17:30 11/03/24 18:52 Temperature Pulse Rate Pulse Rate [Brachial] Respiratory Rate 22 18 22 Blood Pressure Blood Pressure [Right Arm] O2 Sat by Pulse Oximetry Oxygen Delivery Method Oxygen Flow Rate FIO2% 11/03/24 19:52 11/03/24 19:00 11/03/24 20:00 Temperature 98.0 F Pulse Rate Pulse Rate [Brachial] 88 Respiratory Rate 12 16 Blood Pressure Blood Pressure [Right Arm] 189/82 O2 Sat by Pulse Oximetry 93 L Oxygen Delivery Method Nasal Cannula Nasal Cannula Oxygen Flow Rate 2 2 FIO2% 11/03/24 20:22 11/03/24 22:55 11/04/24 00:00 Temperature 98.1 F Pulse Rate Pulse Rate [Brachial] 91 H Respiratory Rate 15 16 12 Blood Pressure Blood Pressure [Right Arm] 165/77 O2 Sat by Pulse Oximetry 98 Oxygen Delivery Method Nasal Cannula Oxygen Flow Rate 2 FIO2% 11/03/24 23:55 11/04/24 02:25 11/04/24 02:55 Temperature Pulse Rate Pulse Rate [Brachial] Respiratory Rate 12 16 12 Blood Pressure Blood Pressure [Right Arm] O2 Sat by Pulse Oximetry Oxygen Delivery Method Oxygen Flow Rate FIO2% 11/03/24 21:00 11/04/24 04:00 11/04/24 06:25 Temperature 98.0 F Pulse Rate Pulse Rate [Brachial] 96 H Respiratory Rate 18 16 Blood Pressure Blood Pressure [Right Arm] 171/80 O2 Sat by Pulse Oximetry 94 L Oxygen Delivery Method Nasal Cannula Nasal Cannula Oxygen Flow Rate 2 2 FIO2% 28 11/04/24 07:29 11/04/24 10:08 11/04/24 12:13 Temperature Pulse Rate Pulse Rate [Brachial] Respiratory Rate 18 21 20 Blood Pressure Blood Pressure [Right Arm] O2 Sat by Pulse Oximetry Oxygen Delivery Method Oxygen Flow Rate FIO2% 11/04/24 13:56 11/04/24 15:56 11/04/24 16:28 Temperature Pulse Rate Pulse Rate [Brachial] Respiratory Rate 20 18 18 Blood Pressure Blood Pressure [Right Arm] O2 Sat by Pulse Oximetry Oxygen Delivery Method Oxygen Flow Rate FIO2% 11/04/24 07:01 11/04/24 08:00 11/04/24 09:00 Temperature Pulse Rate 92 H 90 93 H Pulse Rate [Brachial] Respiratory Rate 16 15 26 H Blood Pressure 147/74 135/65 146/90 Blood Pressure [Right Arm] O2 Sat by Pulse Oximetry 98 94 L 96 Oxygen Delivery Method Oxygen Flow Rate FIO2% 11/04/24 10:01 11/04/24 11:01 11/04/24 12:10 Temperature 99.2 F Pulse Rate 93 H 91 H 93 H Pulse Rate [Brachial] Respiratory Rate 23 20 31 H Blood Pressure 173/74 153/68 169/75 Blood Pressure [Right Arm] O2 Sat by Pulse Oximetry 96 97 95 Oxygen Delivery Method Oxygen Flow Rate FIO2% 11/04/24 13:01 11/04/24 14:00 11/04/24 15:35 Temperature Pulse Rate 94 H 98 H 96 H Pulse Rate [Brachial] Respiratory Rate 26 H 26 H 15 Blood Pressure 176/74 175/77 171/74 Blood Pressure [Right Arm] O2 Sat by Pulse Oximetry 95 94 L 92 L Oxygen Delivery Method Oxygen Flow Rate FIO2% 11/04/24 06:55 11/04/24 08:29 11/04/24 10:38 Temperature Pulse Rate Pulse Rate [Brachial] Respiratory Rate 18 18 20 Blood Pressure Blood Pressure [Right Arm] O2 Sat by Pulse Oximetry Oxygen Delivery Method Oxygen Flow Rate FIO2% 11/04/24 13:13 11/04/24 14:26 11/04/24 07:00 Temperature Pulse Rate Pulse Rate [Brachial] Respiratory Rate 20 20 Blood Pressure Blood Pressure [Right Arm] O2 Sat by Pulse Oximetry Oxygen Delivery Method Nasal Cannula Oxygen Flow Rate 2 FIO2% 11/04/24 16:09 11/04/24 17:02 11/04/24 18:01 Temperature 99.2 F Pulse Rate 104 H 98 H 96 H Pulse Rate [Brachial] Respiratory Rate 24 27 H 21 Blood Pressure 176/77 166/77 172/72 Blood Pressure [Right Arm] O2 Sat by Pulse Oximetry 93 L 94 L 95 Oxygen Delivery Method Oxygen Flow Rate FIO2% 11/04/24 16:56 11/04/24 16:58 11/04/24 19:27 Temperature Pulse Rate Pulse Rate [Brachial] Respiratory Rate 20 19 21 Blood Pressure Blood Pressure [Right Arm] O2 Sat by Pulse Oximetry Oxygen Delivery Method Oxygen Flow Rate FIO2% 11/04/24 23:10 11/04/24 19:00 11/04/24 19:00 Temperature Pulse Rate 93 H Pulse Rate [Brachial] Respiratory Rate 20 11 L Blood Pressure Blood Pressure [Right Arm] O2 Sat by Pulse Oximetry 95 Oxygen Delivery Method Nasal Cannula Oxygen Flow Rate 2 FIO2% 11/04/24 19:01 11/04/24 19:01 11/04/24 19:01 Temperature Pulse Rate 93 H Pulse Rate [Brachial] Respiratory Rate 15 Blood Pressure 158/74 158/74 Blood Pressure [Right Arm] O2 Sat by Pulse Oximetry 95 Oxygen Delivery Method Oxygen Flow Rate FIO2% 11/04/24 20:00 11/04/24 20:01 11/04/24 20:01 Temperature 98.9 F Pulse Rate 91 H 91 H Pulse Rate [Brachial] Respiratory Rate 14 16 Blood Pressure 150/67 Blood Pressure [Right Arm] O2 Sat by Pulse Oximetry 97 97 Oxygen Delivery Method Oxygen Flow Rate FIO2% 11/04/24 19:57 11/04/24 21:00 11/04/24 21:00 Temperature Pulse Rate 95 H Pulse Rate [Brachial] Respiratory Rate 20 13 Blood Pressure 168/74 Blood Pressure [Right Arm] O2 Sat by Pulse Oximetry 95 Oxygen Delivery Method Oxygen Flow Rate FIO2% 11/04/24 21:26 11/04/24 22:00 11/04/24 22:00 Temperature Pulse Rate 96 H Pulse Rate [Brachial] Respiratory Rate 10 L Blood Pressure 174/79 Blood Pressure [Right Arm] O2 Sat by Pulse Oximetry 96 Oxygen Delivery Method Nasal Cannula Oxygen Flow Rate 2 FIO2% 28 11/04/24 23:00 11/04/24 23:40 11/04/24 23:01 Temperature Pulse Rate 97 H Pulse Rate [Brachial] Respiratory Rate 18 20 Blood Pressure 172/74 Blood Pressure [Right Arm] O2 Sat by Pulse Oximetry 96 Oxygen Delivery Method Oxygen Flow Rate FIO2% 11/04/24 23:01 11/04/24 23:01 11/05/24 00:00 Temperature Pulse Rate 97 H 97 H Pulse Rate [Brachial] Respiratory Rate 18 12 Blood Pressure 172/74 Blood Pressure [Right Arm] O2 Sat by Pulse Oximetry 96 95 Oxygen Delivery Method Oxygen Flow Rate FIO2% 11/05/24 00:00 11/05/24 01:00 11/05/24 01:01 Temperature 98.7 F Pulse Rate 98 H 99 H Pulse Rate [Brachial] Respiratory Rate 15 24 Blood Pressure 166/74 Blood Pressure [Right Arm] O2 Sat by Pulse Oximetry 95 96 Oxygen Delivery Method Oxygen Flow Rate FIO2% 11/05/24 01:01 11/05/24 03:00 11/05/24 02:00 Temperature Pulse Rate 101 H Pulse Rate [Brachial] Respiratory Rate 17 Blood Pressure 158/72 167/75 175/76 Blood Pressure [Right Arm] O2 Sat by Pulse Oximetry 95 Oxygen Delivery Method Nasal Cannula Oxygen Flow Rate 2 FIO2% 11/05/24 02:00 11/05/24 03:00 11/05/24 04:14 Temperature Pulse Rate 100 H Pulse Rate [Brachial] Respiratory Rate 22 20 20 Blood Pressure Blood Pressure [Right Arm] O2 Sat by Pulse Oximetry 95 Oxygen Delivery Method Oxygen Flow Rate FIO2% 11/05/24 06:02 11/05/24 03:00 11/05/24 03:00 Temperature Pulse Rate 102 H Pulse Rate [Brachial] Respiratory Rate 20 26 H Blood Pressure 169/126 Blood Pressure [Right Arm] O2 Sat by Pulse Oximetry 96 Oxygen Delivery Method Oxygen Flow Rate FIO2% 11/05/24 03:02 11/05/24 03:02 11/05/24 04:06 Temperature 99.2 F Pulse Rate 101 H 104 H Pulse Rate [Brachial] Respiratory Rate 23 18 Blood Pressure 167/75 Blood Pressure [Right Arm] O2 Sat by Pulse Oximetry 96 Oxygen Delivery Method Oxygen Flow Rate FIO2% 11/05/24 04:18 11/05/24 04:19 11/05/24 04:00 Temperature Pulse Rate 102 H Pulse Rate [Brachial] Respiratory Rate 19 20 Blood Pressure 163/72 Blood Pressure [Right Arm] O2 Sat by Pulse Oximetry 100 Oxygen Delivery Method Oxygen Flow Rate FIO2% 11/05/24 04:21 11/05/24 05:00 11/05/24 05:00 Temperature Pulse Rate 102 H 97 H Pulse Rate [Brachial] Respiratory Rate 24 21 Blood Pressure 163/72 Blood Pressure [Right Arm] O2 Sat by Pulse Oximetry 100 99 Oxygen Delivery Method Oxygen Flow Rate FIO2% 11/05/24 06:00 11/05/24 06:01 11/05/24 06:01 Temperature Pulse Rate 80 81 Pulse Rate [Brachial] Respiratory Rate 22 21 Blood Pressure 140/66 Blood Pressure [Right Arm] O2 Sat by Pulse Oximetry 94 L 87 L Oxygen Delivery Method Oxygen Flow Rate FIO2% 11/05/24 04:44 11/05/24 06:29 11/05/24 06:29 Temperature Pulse Rate 80 Pulse Rate [Brachial] Respiratory Rate 20 25 H Blood Pressure 130/63 Blood Pressure [Right Arm] O2 Sat by Pulse Oximetry 97 Oxygen Delivery Method Oxygen Flow Rate FIO2% 11/05/24 06:32 11/05/24 07:00 11/05/24 07:49 Temperature Pulse Rate 77 Pulse Rate [Brachial] Respiratory Rate 20 18 18 Blood Pressure 142/66 Blood Pressure [Right Arm] O2 Sat by Pulse Oximetry 97 Oxygen Delivery Method Oxygen Flow Rate FIO2% 11/05/24 09:38 11/05/24 11:35 11/05/24 07:00 Temperature 99.2 F Pulse Rate 97 H Pulse Rate [Brachial] Respiratory Rate 18 18 Blood Pressure 136/63 Blood Pressure [Right Arm] O2 Sat by Pulse Oximetry 98 Oxygen Delivery Method Room Air Nasal Cannula Oxygen Flow Rate 2 FIO2% 11/05/24 08:00 11/05/24 09:00 11/05/24 10:00 Temperature 98.9 F Pulse Rate 77 98 H 97 H Pulse Rate [Brachial] Respiratory Rate 22 18 12 Blood Pressure 137/73 137/65 155/69 Blood Pressure [Right Arm] O2 Sat by Pulse Oximetry 93 L 93 L 94 L Oxygen Delivery Method Oxygen Flow Rate FIO2% 11/05/24 11:00 11/05/24 12:58 11/05/24 13:20 Temperature Pulse Rate 100 H 74 Pulse Rate [Brachial] Respiratory Rate 21 18 16 Blood Pressure 143/64 109/55 Blood Pressure [Right Arm] O2 Sat by Pulse Oximetry 93 L 95 Oxygen Delivery Method Nasal Cannula Oxygen Flow Rate FIO2% 11/05/24 13:25 11/05/24 13:30 11/05/24 13:45 Temperature 98.7 F Pulse Rate 74 74 Pulse Rate [Brachial] 73 Respiratory Rate 16 16 10 L Blood Pressure 104/55 108/55 Blood Pressure [Right Arm] 112/54 O2 Sat by Pulse Oximetry 96 97 95 Oxygen Delivery Method Nasal Cannula Nasal Cannula Oxygen Flow Rate FIO2% 11/05/24 14:00 11/05/24 08:49 11/05/24 10:08 Temperature 98.7 F Pulse Rate Pulse Rate [Brachial] 74 Respiratory Rate 10 L 20 20 Blood Pressure Blood Pressure [Right Arm] 111/55 O2 Sat by Pulse Oximetry 95 Oxygen Delivery Method Oxygen Flow Rate FIO2% 11/05/24 14:15 11/05/24 14:30 11/05/24 14:45 Temperature 98.1 F 98.1 F 98.1 F Pulse Rate Pulse Rate [Brachial] 73 72 71 Respiratory Rate 10 L 10 L 10 L Blood Pressure Blood Pressure [Right Arm] 114/56 108/51 116/54 O2 Sat by Pulse Oximetry 95 98 98 Oxygen Delivery Method Oxygen Flow Rate FIO2% 11/05/24 15:45 11/05/24 16:45 11/05/24 17:45 Temperature 98.0 F 98.0 F 98.0 F Pulse Rate Pulse Rate [Brachial] 74 71 71 Respiratory Rate 12 17 14 Blood Pressure Blood Pressure [Right Arm] 123/56 101/51 104/53 O2 Sat by Pulse Oximetry 94 L 98 94 L Oxygen Delivery Method Oxygen Flow Rate FIO2% 11/05/24 18:45 11/05/24 19:00 11/05/24 19:00 Temperature 98.2 F 98.7 F Pulse Rate 74 Pulse Rate [Brachial] 74 Respiratory Rate 16 16 Blood Pressure 125/60 Blood Pressure [Right Arm] 116/58 O2 Sat by Pulse Oximetry 99 97 Oxygen Delivery Method Nasal Cannula Oxygen Flow Rate 2 FIO2% 11/05/24 20:00 11/05/24 21:27 11/05/24 20:40 Temperature Pulse Rate 75 Pulse Rate [Brachial] Respiratory Rate 18 18 Blood Pressure 126/58 Blood Pressure [Right Arm] O2 Sat by Pulse Oximetry 99 Oxygen Delivery Method Nasal Cannula Oxygen Flow Rate 2 FIO2% 28 11/05/24 20:40 11/05/24 21:00 11/05/24 22:00 Temperature Pulse Rate 76 75 72 Pulse Rate [Brachial] Respiratory Rate 12 22 Blood Pressure 132/60 127/60 Blood Pressure [Right Arm] O2 Sat by Pulse Oximetry 96 98 93 L Oxygen Delivery Method Oxygen Flow Rate FIO2% 11/05/24 23:00 11/06/24 00:00 11/05/24 22:27 Temperature 97.9 F Pulse Rate 76 72 Pulse Rate [Brachial] Respiratory Rate 12 10 L 18 Blood Pressure 131/64 116/57 Blood Pressure [Right Arm] O2 Sat by Pulse Oximetry 96 95 Oxygen Delivery Method Oxygen Flow Rate FIO2% 11/06/24 00:37 11/06/24 01:00 11/06/24 02:00 Temperature Pulse Rate 75 78 Pulse Rate [Brachial] Respiratory Rate 23 29 H Blood Pressure 133/63 130/66 Blood Pressure [Right Arm] O2 Sat by Pulse Oximetry 93 L 91 L Oxygen Delivery Method Nasal Cannula Oxygen Flow Rate 2 FIO2% 28 11/06/24 02:43 11/06/24 02:57 11/06/24 06:37 Temperature Pulse Rate 82 Pulse Rate [Brachial] Respiratory Rate 21 18 18 Blood Pressure 130/66 Blood Pressure [Right Arm] O2 Sat by Pulse Oximetry 91 L Oxygen Delivery Method Oxygen Flow Rate FIO2% 11/06/24 03:56 11/06/24 04:42 11/06/24 03:57 Temperature 97.7 F Pulse Rate 80 80 Pulse Rate [Brachial] Respiratory Rate 14 20 18 Blood Pressure 145/65 151/66 Blood Pressure [Right Arm] O2 Sat by Pulse Oximetry 93 L 94 L Oxygen Delivery Method Oxygen Flow Rate FIO2% 11/06/24 05:57 11/05/24 14:00 11/05/24 14:15 Temperature Pulse Rate 82 Pulse Rate [Brachial] Respiratory Rate 22 Blood Pressure 152/70 111/55 114/56 Blood Pressure [Right Arm] O2 Sat by Pulse Oximetry 95 Oxygen Delivery Method Oxygen Flow Rate FIO2% 11/05/24 14:15 11/05/24 14:30 11/05/24 14:30 Temperature Pulse Rate 73 72 Pulse Rate [Brachial] Respiratory Rate 9 L 9 L Blood Pressure 108/51 Blood Pressure [Right Arm] O2 Sat by Pulse Oximetry 95 95 Oxygen Delivery Method Oxygen Flow Rate FIO2% 11/05/24 14:30 11/05/24 14:30 11/05/24 14:45 Temperature Pulse Rate 71 Pulse Rate [Brachial] Respiratory Rate 8 L Blood Pressure 108/51 108/51 Blood Pressure [Right Arm] O2 Sat by Pulse Oximetry 98 Oxygen Delivery Method Oxygen Flow Rate FIO2% 11/05/24 14:45 11/05/24 15:00 11/05/24 15:00 Temperature Pulse Rate 71 Pulse Rate [Brachial] Respiratory Rate 15 Blood Pressure 116/54 119/56 Blood Pressure [Right Arm] O2 Sat by Pulse Oximetry 94 L Oxygen Delivery Method Oxygen Flow Rate FIO2% 11/05/24 16:00 11/05/24 16:00 11/05/24 17:00 Temperature Pulse Rate 74 69 Pulse Rate [Brachial] Respiratory Rate 23 17 Blood Pressure 123/56 Blood Pressure [Right Arm] O2 Sat by Pulse Oximetry 94 L 98 Oxygen Delivery Method Oxygen Flow Rate FIO2% 11/05/24 17:00 11/05/24 18:00 11/05/24 18:00 Temperature Pulse Rate 70 Pulse Rate [Brachial] Respiratory Rate 12 Blood Pressure 101/51 104/53 Blood Pressure [Right Arm] O2 Sat by Pulse Oximetry 96 Oxygen Delivery Method Oxygen Flow Rate FIO2% 11/05/24 18:51 11/05/24 18:51 11/05/24 18:53 Temperature Pulse Rate 73 74 Pulse Rate [Brachial] Respiratory Rate 23 13 Blood Pressure 72/50 Blood Pressure [Right Arm] O2 Sat by Pulse Oximetry 98 99 Oxygen Delivery Method Oxygen Flow Rate FIO2% 11/05/24 18:53 11/05/24 19:00 11/05/24 19:01 Temperature Pulse Rate 74 73 Pulse Rate [Brachial] Respiratory Rate 29 H 23 Blood Pressure 116/58 Blood Pressure [Right Arm] O2 Sat by Pulse Oximetry 98 99 Oxygen Delivery Method Oxygen Flow Rate FIO2% 11/05/24 19:01 11/05/24 20:00 11/05/24 20:00 Temperature Pulse Rate 76 Pulse Rate [Brachial] Respiratory Rate 23 Blood Pressure 125/60 126/58 Blood Pressure [Right Arm] O2 Sat by Pulse Oximetry 94 L Oxygen Delivery Method Oxygen Flow Rate FIO2% 11/05/24 21:00 11/05/24 21:00 11/05/24 22:00 Temperature Pulse Rate 76 74 Pulse Rate [Brachial] Respiratory Rate 25 H 16 Blood Pressure 132/60 Blood Pressure [Right Arm] O2 Sat by Pulse Oximetry 97 93 L Oxygen Delivery Method Oxygen Flow Rate FIO2% 11/05/24 22:00 11/05/24 23:00 11/05/24 23:00 Temperature Pulse Rate 76 Pulse Rate [Brachial] Respiratory Rate 19 Blood Pressure 127/60 131/64 Blood Pressure [Right Arm] O2 Sat by Pulse Oximetry 95 Oxygen Delivery Method Oxygen Flow Rate FIO2% 11/06/24 00:00 11/06/24 00:00 11/06/24 01:00 Temperature Pulse Rate 73 Pulse Rate [Brachial] Respiratory Rate 15 Blood Pressure 116/57 133/63 Blood Pressure [Right Arm] O2 Sat by Pulse Oximetry 94 L Oxygen Delivery Method Oxygen Flow Rate FIO2% 11/06/24 01:00 11/06/24 02:00 11/06/24 02:00 Temperature Pulse Rate 73 79 Pulse Rate [Brachial] Respiratory Rate 20 21 Blood Pressure 130/60 Blood Pressure [Right Arm] O2 Sat by Pulse Oximetry 93 L 92 L Oxygen Delivery Method Oxygen Flow Rate FIO2% 11/06/24 03:00 11/06/24 03:00 11/06/24 04:00 Temperature Pulse Rate 81 80 Pulse Rate [Brachial] Respiratory Rate 32 H 14 Blood Pressure 145/65 Blood Pressure [Right Arm] O2 Sat by Pulse Oximetry 93 L 93 L Oxygen Delivery Method Oxygen Flow Rate FIO2% 11/06/24 04:00 11/06/24 05:00 11/06/24 05:00 Temperature Pulse Rate 81 Pulse Rate [Brachial] Respiratory Rate 16 Blood Pressure 151/66 152/70 Blood Pressure [Right Arm] O2 Sat by Pulse Oximetry 93 L Oxygen Delivery Method Oxygen Flow Rate FIO2% 11/06/24 06:00 11/06/24 06:00 11/06/24 06:00 Temperature Pulse Rate 81 Pulse Rate [Brachial] Respiratory Rate 26 H Blood Pressure 139/65 139/65 Blood Pressure [Right Arm] O2 Sat by Pulse Oximetry 93 L Oxygen Delivery Method Oxygen Flow Rate FIO2% 11/06/24 06:00 11/06/24 07:00 11/06/24 07:00 Temperature 98.4 F Pulse Rate 81 78 Pulse Rate [Brachial] Respiratory Rate 26 H 21 Blood Pressure 145/67 Blood Pressure [Right Arm] O2 Sat by Pulse Oximetry 93 L 93 L Oxygen Delivery Method Oxygen Flow Rate FIO2% 11/06/24 08:00 11/06/24 08:01 11/06/24 08:01 Temperature Pulse Rate 98 H 98 H Pulse Rate [Brachial] Respiratory Rate 17 16 Blood Pressure 165/74 Blood Pressure [Right Arm] O2 Sat by Pulse Oximetry 91 L 93 L Oxygen Delivery Method Oxygen Flow Rate FIO2% 11/06/24 09:00 11/06/24 09:00 11/06/24 07:00 Temperature Pulse Rate 96 H Pulse Rate [Brachial] Respiratory Rate 33 H Blood Pressure 176/72 Blood Pressure [Right Arm] O2 Sat by Pulse Oximetry 91 L Oxygen Delivery Method Room Air Oxygen Flow Rate FIO2% 11/06/24 10:00 11/06/24 10:00 Temperature Pulse Rate 95 H Pulse Rate [Brachial] Respiratory Rate 14 Blood Pressure 173/75 Blood Pressure [Right Arm] O2 Sat by Pulse Oximetry 93 L Oxygen Delivery Method Oxygen Flow Rate FIO2% Labs: Laboratory Last Values WBC 7.0 X10^3/uL (3.6-10.0) 11/05/24 09: RBC 3.48 X10^6/uL (3.5-5.4) L 11/05/24 09: Hgb 10.0 g/dL (12.0-16.0) L 11/05/24: Hct 31.7 % (36.0-47.0) L 11/05/24: MCV 90.9 fL (80.0-100.0) 11/05/24: MCH 28.6 pg (27.0-34.0) 11/05/24 09: MCHC 31.4 g/dL (33.0-35.0) L 11/05/24: RDW 17.8 % (11.6-16.5) H 11/05/24 09:25 Plt Count 123 X10^3/uL (150.0-450.0) L 11/05/24: Plt Count Comment Decreased (ADEQUATE) A 11/05/24: MPV 8.3 fL (7.4-11.0) 11/05/24:25 Neut % (Auto) 77.4 % (42.0-75.0) H 11/05/24: Lymph % (Auto) 10.6 % (21.0-51.0) L 11/05/24: [place] % (Auto) 9.5 % (0.0-13.0) 11/05/24: Eos % (Auto) 1.7 % (0.9-2.9) 11/05/24: Baso % (Auto) 0.8 % (0.2-1.0) 11/05/24 09:25 Neut # (Auto) 5.4 x10^3/uL (2.2-4.8) H 11/05/24 09:25 Lymph # (Auto) 0.7 X10^3/uL (1.3-2.9) L 11/05/24 09:25 Stanton # (Auto) 0.7 x10^3/uL (0.3-0.8) 11/05/24 09:25 Eos # (Auto) 0.1 x10^3/uL (0.0-0.2) 11/05/24 09:25 Baso # (Auto) 0.1 X10^3/uL (0.0-0.1) 11/05/24 09:25 Absolute Nucleated RBC 0.0 /100WBC 11/05/24 09: Total Counted 100 11/05/24 09:25 Neutrophils % (Manual) 79 % (39-76) H 11/05/24 09:25 Lymphocytes % (Manual) 12 % (13-43) L 11/05/24 09:25 Monocytes % (Manual) 9 % (4-9) 11/05/24 09:25 Plt Morphology Comment Normal (NORMAL) 11/05/24 09: RBC Morphology Abnormal (NORMAL) A 11/05/24 09:25 Anisocytosis Slight A 11/05/24 09:25 APTT 58.5 SECONDS (22.9-36.5) H 11/05/24 09:25 PTT Comment - 11/05/24 09:25 Fibrinogen 381 mg/dL (239-489) 11/05/24 09:25 Sodium 135 mmol/L (136-145) L 11/06/24 04:50 Corrected Sodium TNP 11/06/24 04:50 Potassium 5.0 mmol/L (3.5-5.1) 11/06/24 04:50 Chloride 103 mmol/L (98-107) 11/06/24 04:50 Carbon Dioxide 19.6 mmol/L (21-32) L 11/06/24 04:50 BUN 64 mg/dL (7-18) H 11/06/24 04:50 Creatinine 6.31 mg/dL (0.55-1.02) H 11/06/24 04:50 Est GFR (MDRD) Af Amer 8 (>60) L 11/06/24 04:50 Est GFR (MDRD) Non-Af 7 (>60) L 11/06/24 04:50 Glucose 94 mg/dL (65-99) 11/06/24 04:50 Calcium 7.9 mg/dL (8.5-10.1) L 11/06/24 04:50 Corrected Calcium 8.9 mg/dL (8.5-10.1) 11/03/24 05:43 Total Bilirubin 0.20 mg/dL (0.2-1.0) 11/03/24 05:43 AST 14 Units/L (15-37) L 11/03/24 05:43 ALT 14 Units/L (12-78) 11/03/24 05:43 Alkaline Phosphatase 116 Units/L (46-116) 11/03/24 05:43 Total Protein 6.4 g/dL (6.4-8.2) 11/03/24 05:43 Albumin 3.2 g/dL (3.4-5.0) L 11/03/24 05:43 Globulin 3.2 g/dL (2.5-4.5) 11/03/24 05:43 Albumin/Globulin Ratio 1.0 Ratio (1.1-2.1) L 11/03/24 05:43 Reason For Visit: CRITICAL ISCHEMIA RIGHT LEG, EKOS Discharge Date Discharge Date: 11/06/24 Discharge Diagnosis All Active Problems (Updated 11/03/24 @ 16:11 by Luis Rm) Gout (Acute) Atherosclerosis of [place] arteries of extremities with rest pain, right leg (Acute) End stage renal disease (Acute) Carotid artery disease (Acute) Plan of Treatment: Continue with present treatment and follow up plan. Pt is to keep follow up appointment as instructed and take medications as ordered. Discharge Medications Discharge Medications: No Known Allergies Allergy (Verified 04/24/24 11:07) CONTINUE taking the following medications clopidogrel 75 mg tablet 75 mg PO QDAY 11/02/24 [History] labetalol 200 mg tablet 200 mg PO TID 11/02/24 [History] nifedipine 90 mg tablet,extended release 90 mg PO BID 11/02/24 [History] Xarelto 2.5 mg po BID aspirin 81 mg po q day Percocet, 5mg, 1 po q 6 Hr PRN pain Discharge Disposition Assessment: see hospital course Discharge Plan Discharge Plan Hospital Course: This patient is a 74-year-old female with history of chronic renal failure who is dialyzed 3 times a week. She also has significant bilateral peripheral vascular disease.She presented with acute ischemia of the right leg on the day of admission. Patient was admitted and placed on therapeutic Lovenox and CT angiogram showed thrombosis of all of the vessels and stents of the right leg. She was taken to the operating suite on November 03 where she underwent ar teriogram showing the complete occlusion. Approach was via the anterior tibial artery. She required 24 hours of directed thrombolysis with TPA. She was taken back to the operating suite on November 05 ,arteriogram showed resolution of the thrombus with evidence of severe disease of the distal popliteal artery and this was stented. Her pain is now relieved. She has Doppler signals in the anterior tibial and posterior tibial arteries. She will be discharged today and we will plan to have dialysis today. We have been following her laboratory evaluation ,her creatinine has been stable around 5.3 now 6.3 on discharge and her potassium has been normal. Volume status has been adequate. She will be discharged today to have dialysis today and probably tomorrow as well. She will follow-up with me in 1 week. She will be given prescriptions for Percocet 5 mg tablets 1 every 6 hours. Pain. Patient Disposition: 01 HOME, SELF-CARE Condition: Stable Health Concerns: Post Hospitalization: new medications and changes needed to prevent readmission or further decline. Pt educated and given instructions on all concerns. Care Plan Goals: Problem: Pain/Alteration in Comfort Goal: Improve/ Resolve Pain; Achieve Pain Tolerance Instructions: Take pain medications as prescribed. Contact your primary care provider if your pain is unrelieved or worsens. Follow up with primary care provider as directed. Plan of Treatment: Continue with present treatment and follow up plan. Pt is to keep follow up appointment as instructed and take medications as ordered. Assessment: see hospital course Prescription drug monitoring program results: PDMP reviewed and no concerns identified Prescriptions: New Xarelto 2.5 mg tablet 2.5 mg PO BID Qty: 180 0RF oxycodone-acetaminophen [Percocet] 5-325 mg tablet 1 tab PO Q6H MDD 4 PRNQty: 30 0RF Continued atorvastatin 40 mg tablet 40 mg PO DAILY hydralazine 100 mg tablet 100 mg PO TID cyclobenzaprine 10 mg tablet 10 mg PO PRN PRN gabapentin 300 mg capsule 600 mg PO DAILY ferrous sulfate [Feosol] 325 mg (65 mg iron) tablet 325 mg PO QDAY aspirin 81 mg tablet,delayed release (DR/EC) 81 mg PO QDAY cholecalciferol (vitamin D3) 25 mcg (1,000 unit) capsule 25 mcg PO QDAY clonidine HCl 0.3 mg tablet 0.3 mg PO TID nifedipine 90 mg tablet extended release 90 mg PO BID clopidogrel 75 mg tablet 75 mg PO QDAY labetalol 200 mg Tablet 200 mg PO TID Follow ups/Referrals Follow ups/Referrals: Luis Rm [Primary Care Provider] - 11/11/24 11:45 am Instructions Instructions: Carotid Artery Disease, [id number], Endovascular Therapy for Peripheral Vascular Disease: What to Know After Stand Alone Forms: Find Help Web Site, Post Hospital Follow Up Care
[2024-11-06 11:08] VITALS: RESP 18
[2024-11-06] MEDS: COLACE CAP 100 MG PO PRN (11:08)
--- NOTE | 2024-11-07 12:41 | DR.OPNOTE ---
OP NOTE Pre-Op Diagnosis: Thrombosis of arteries right leg, s/p directed thrombolysis with TPA Post-Op Diagnosis: Resolved thrombosis arteries P leg, significant stenosis of the R popliteal Procedure Date Date Of Procedure: 11/05/24 Procedure: PROCEDURE: Removal of EKOS thrombolytic catheter, on table arteriogram of the right lower extremity, aortogram, intravascular ultrasound of the arteries of the right leg, stenting of the right popliteal artery NARRATIVE: The patient was taken to the operative suite and placed in the supine position. The EKOS thrombolytic catheter was removed and the outer sheath remained. The right leg prepped and draped in sterile fashion. Patient given intravenous sedation supervised by myself. Timeout for the procedure obtained. 0.5% Marcaine injected around the sheath entering the right anterior tibial artery at the ankle. Through the outer sheath of the EKOS catheter we placed a 0.035 inch wire and then placed a [place] catheter over the wire all the way to the aorta after removing the outer sheath of the EKOS catheter. Diagnostic aortogram carried out showing patent bilateral iliac arteries and distal aorta. There was no problems with the common or external iliac arteries of the right side. The thrombus of the right superficial femoral artery had been resolved. There was good flow down to the popliteal with some filling defects of the popliteal artery. There was now three-vessel runoff to the ankle of the right leg. Using [place] catheter we exchanged the 0.035 inch wire for a 0.0.18 wire and over this placed the intra vascular ultrasound probe , performing ultrasound of the arteries of the right leg with the only abnormality being severe stenosis greater than 80% of the portions of the right popliteal artery. Over this wire we placed an Tiffanie 6 mm x 120 mm drug-eluting stent and deployed it over the area of the popliteal artery and then balloon dilated it with a 5 mm 100 mm balloon. Post procedure arteriogram showed excellent result. Patient had been given 3000 units of heparin at the beginning of the case. This was not reversed. The sheath in the right anterior artery was removed and pressure placed over this with a tibial band to control bleeding and obtain hemostasis. Patient taken back to the critical care unit in good condition after a short stay in the PACU. Type of Anesthesia: Local (0.5% Marcaine ) Anesthesia Comment: Plus MAC Findings: Resolution of the thrombus of all arteries of the right leg with three-vessel runoff, significant stenosis of the popliteal artery documented by intravascular ultrasound Type of Fluids Used:: Normal Saline Total Amount of Fluid Infused:: 100cc EBL: 50 cc Hardware: 6 mm 120 mm Tiffanie stent placed right popliteal artery Disposition/Condition: Pt. tolerated procedure without difficulty. Extubated in the OR and taken to PACU in stable condition.
== END 2024-11-06 12:30 | disposition home or self-care (01) | DRG 278 ==
LOC: MED/SURG → ICU 11-03 15:20
PROVIDERS: ADMIT Surgery; ATTEND Surgery
DX: I70.221 Atherosclerosis of native arteries of extremities with rest pain, right leg; Z99.2 Dependence on renal dialysis; M10.9 Gout, unspecified; N18.6 End stage renal disease; I74.3 Embolism and thrombosis of arteries of the lower extremities; R79.1 Abnormal coagulation profile; E78.5 Hyperlipidemia, unspecified; I25.10 Atherosclerotic heart disease of native coronary artery without angina pectoris; Z86.73 Personal history of transient ischemic attack (TIA), and cerebral infarction without residual deficits; I12.0 Hypertensive chronic kidney disease with stage 5 chronic kidney disease or end stage renal disease; Z95.1 Presence of aortocoronary bypass graft; Z01.810 Encounter for preprocedural cardiovascular examination